=== PATIENT | female | born 1955 | race Caucasian/White ===

== ENCOUNTER → 2025-06-22 09:12 | Outpatient (REF) | payer MEDICARE, OTHER, SELFPAY ==
[2025-06-22 11:17] LABS: Folate > 20.0 ng/ml (2.76-20); Vitamin B12 > 1000 pg/ml (239-931)
== END ==
LOC: REG 09:12
PROVIDERS: ATTENDING PHYSICIAN Specialist; FAMILY PHYSICIAN Family Medicine
DX: D51.9 Vitamin B12 deficiency anemia, unspecified (principal)
CPT/HCPCS: 36415; 82607; 82746; 83090; 83921

== ENCOUNTER → 2025-08-26 17:01 | Outpatient (REF) | payer MEDICARE, OTHER, SELFPAY | LOC: PAVMRI 17:01 | PROVIDERS: ATTENDING PHYSICIAN Specialist; FAMILY PHYSICIAN Emergency Medicine | DX: G31.84 Mild cognitive impairment of uncertain or unknown etiology (principal) | CPT/HCPCS: 70551 ==

== ENCOUNTER → 2025-11-03 10:15 | Outpatient (REF) | payer MEDICARE, OTHER, SELFPAY ==
[2025-11-03 11:24] LABS: Hematocrit 43.4 % (37.0-47.0); Hemoglobin 13.8 g/dL (12.0-16.0); Mean Corp Hgb Conc. 31.8 g/dL (33.0-37.0); Mean Corpuscular Volume 84.4 fL (81.0-99.0); Nucleated Red Blood Cells % 0 %; Platelet Count 230 10^3/uL (130-400); Red Cell Dist. Width 13.5 % (11.5-14.5)
[2025-11-03 11:49] LABS: ALT (SGPT) 17 U/L (0-35); AST (SGOT) 22 U/L (14-36); Albumin 4.3 g/dl (3.5-5.0); Alkaline Phosphatase 67 U/L (38-126); Blood Urea Nitrogen 17 mg/dl (7-17); Calcium 9.1 mg/dl (8.4-10.2); Carbon Dioxide 27 mmol/L (22-30); Chloride 105 mmol/L (98-107); Glucose 111 mg/dl (70-99); Iron 79 ug/dl (37-170); Potassium 4.3 mmol/L (3.5-5.1); Sodium 138 mmol/L (135-145); Total Protein 6.5 g/dl (6.3-8.2); eGFR > 60.00
[2025-11-03 11:58] LABS: Total Iron Binding Capacity 309 ug/dl (265-497)
[2025-11-03 12:20] LABS: Ferritin 69.7 ng/ml (11.1-264.0)
[2025-11-05 00:27] LABS: Beta-2-Glycoprotein I Ab. IgG <10 SGU (<=20); Beta-2-Glycoprotein I Ab. IgM 14 SMU (<=20)
[2025-11-05 00:41] LABS: Phosphatidylserine Ab, IgA 1 APS (0-19); Phosphatidylserine Ab, IgG 0 GPS (0-15); Phosphatidylserine Ab, IgM 0 MPS (0-21)
== END ==
LOC: REG 10:15
PROVIDERS: ATTENDING PHYSICIAN Nurse Practitioner Family
DX: D68.59 Other primary thrombophilia (principal); I82.91 Chronic embolism and thrombosis of unspecified vein; D50.9 Iron deficiency anemia, unspecified
CPT/HCPCS: 36415; 80053; 81240; 81241; 82728; 83540; 83550; 85025; 85610; 85613; 85730; 86146; 86147; 86148